=== PATIENT | male | born 1970 | race Caucasian/White ===

== ENCOUNTER 2024-02-14 10:58 | Emergency (ER) | payer OTHER ==
[2024-02-14 11:05] VITALS: RESP 16; TEMP 97.9; BMI 29.1
[2024-02-14 11:46] LABS: BASO % 0.4 % (0-2.0); EOS % 3.3 % (0-4.5); HEMATOCRIT 41.6 % (35.4-49); HEMOGLOBIN 14.1 GM/dL (11.7-16.9); LYMPH % 23.1 % (8-40); MCH 32.1 pg (25.7-33.7); MEAN CELL VOLUME 94.5 fl (80-96); MEAN PLT VOLUME 10.8 fl (7.5-11.1); NEUT % 65.2 % (42.8-82.8); PLATELET COUNT 144 10^3/uL (134-434); RDW 13.3 % (11.9-15.9); WHITE BLOOD COUNT 5.2 K/mm3 (4.0-10.0)
[2024-02-14 11:54] LABS: INR 1.04 (0.83-1.09); PROTHROMBIN TIME (PATIENT) 11.9 SEC (9.7-13.0)
[2024-02-14 11:57] LABS: ACTIVATED PTT 32.6 SECONDS (25.2-36.5)
[2024-02-14 12:02] LABS: POTASSIUM 3.9 mmol/L (3.5-5.1)
[2024-02-14 12:03] LABS: CALCIUM 8.5 mg/dL (8.5-10.1)
[2024-02-14 12:04] LABS: ALBUMIN 3.6 g/dl (3.4-5.0); BLOOD UREA NITROGEN 17.8 mg/dL (7-18)
[2024-02-14 12:07] LABS: CREATININE 0.9 mg/dL (0.55-1.3)
[2024-02-14 12:08] LABS: BILIRUBIN,TOTAL 0.4 mg/dL (0.2-1); TOT PROT 6.1 g/dl (6.4-8.2)
[2024-02-14 12:12] LABS: N-TERMINAL BNP 61.4 pg/ml (5-125)
[2024-02-14 14:36] VITALS: BP 121/75; PULSE 60
== END 2024-02-14 14:37 | disposition home or self-care (01) ==
LOC: JER 10:58
DX: R07.2 Precordial pain (principal)
CPT/HCPCS: 36415; 71045-TC-FY; 80053; 83880; 84484; 85025; 85610; 85730; 93005; 93010; 99285-25

== ENCOUNTER 2024-03-31 08:16 | Emergency (ER) | payer OTHER ==
[2024-03-31 09:00] VITALS: BMI 28.5
[2024-03-31 09:47] LABS: BASO % 0.3 % (0-2.0); EOS % 2.4 % (0-4.5); HEMATOCRIT 41.9 % (35.4-49); HEMOGLOBIN 14.1 GM/dL (11.7-16.9); LYMPH % 18.8 % (8-40); MCHC 33.7 g/dl (32.0-35.9); MEAN PLT VOLUME 11.2 fl (7.5-11.1); MONO % 7.1 % (3.8-10.2); NEUT % 71.4 % (42.8-82.8); PLATELET COUNT 145 10^3/uL (134-434); RBC 4.41 M/mm3 (4.00-5.60); RDW 13.3 % (11.9-15.9); WHITE BLOOD COUNT 5.2 K/mm3 (4.0-10.0)
[2024-03-31 10:01] LABS: POTASSIUM 4.2 mmol/L (3.5-5.1)
[2024-03-31 10:04] LABS: CALCIUM 8.8 mg/dL (8.5-10.1)
[2024-03-31 10:05] LABS: ALBUMIN 3.6 g/dl (3.4-5.0); BLOOD UREA NITROGEN 14.5 mg/dL (7-18)
[2024-03-31 10:08] LABS: CREATININE 0.7 mg/dL (0.55-1.3)
[2024-03-31 10:09] LABS: BILIRUBIN,TOTAL 0.4 mg/dL (0.2-1); TOT PROT 5.9 g/dl (6.4-8.2)
[2024-03-31] MEDS ORDERED: ACETAMINOPHEN 500 MG TABLET (FP) ONE (10:57)
[2024-03-31] MEDS ORDERED: MAG HYDROX/AL HYDROX/SIMETH 30 ML UNIT-DOSE CUP ONE (10:57)
[2024-03-31] MEDS: MAG HYDROX/AL HYDROX/SIMETH 30 ML UNIT-DOSE CUP PO ONE (11:00)
[2024-03-31] MEDS: ACETAMINOPHEN 500 MG TABLET (FP) PO ONE (11:00)
[2024-03-31 13:25] VITALS: BP 133/74; PULSE 60; RESP 16; TEMP 97.4
== END 2024-03-31 13:25 | disposition home or self-care (01) ==
LOC: JER 08:16
DX: R07.2 Precordial pain (principal); R51.9 Headache, unspecified
CPT/HCPCS: 36415; 80053; 84484; 85025; 99284-25